=== PATIENT | male | born 1945 | race Caucasian/White ===

== ENCOUNTER 2019-06-11 18:40 | Emergency (ER) | payer OTHER ==
--- NOTE | 2019-06-11 20:11 | PDOC ---
History of Present Illness - General History Source: Patient, Family Exam Limitations: Clinical Condition (Alzheimer's disease), Language Barrier ( primarily Nepali speaker, some Mauritian) - History of Present Illness Initial Comments: 74 yo M PMH Alzheimer's dementia, BPH, [place] 6 prostate CA, p/w lower abdominal pain and inability to urinate. Patient had a colonoscopy this morning , and came out of anesthesia around 1530. He had urge to urinate but was not able to. Per his family, they had to "stop every 15 minutes so he could try to pee, but he couldn't. He tried to jump out of the car, he had to pee so bad." Denies CP, SOB, wheezing, cough, constipation, diarrhea, fevers/chills. Endorses lower abdominal pain and inability to urinate. 06/11/19 19:45 <Doroteo Simon - Last Filed: 06/11/19 21:33> <Maria Ines Katz - Last Filed: 06/11/19 22:02> - General Chief Complaint: Urinary Problem Stated Complaint: SERVE PAIN Time Seen by Provider: 06/11/19 19:27 Past History - Past Medical History COPD: No Dementia: Yes - Suicide/Smoking/Psychosocial Hx Smoking History: Never smoked Hx Alcohol Use: No Drug/Substance Use Hx: No <Doroteo Simon - Last Filed: 06/11/19 21:33> <Maria Ines Katz - Last Filed: 06/11/19 22:02> - Past Medical History Allergies/Adverse Reactions: Allergies Allergy/AdvReac Type Severity Reaction Status Date / Time No Known Allergies Allergy Verified 06/11/19 18:56 *Physical Exam - Vital Signs Last Vital Signs Temp Pulse Resp BP Pulse Ox 98.1 F 77 16 165/73 97 06/11/19 18:53 06/11/19 18:53 06/11/19 18:53 06/11/19 18:53 06/11/19 18:53 <Doroteo Simon - Last Filed: 06/11/19 21:33> - Vital Signs Last Vital Signs Temp Pulse Resp BP Pulse Ox 97.7 F 77 16 165/73 97 06/11/19 21:24 06/11/19 18:53 06/11/19 18:53 06/11/19 18:53 06/11/19 18:53 <Maria Ines Katz - Last Filed: 06/11/19 22:02> ED Treatment Course - LABORATORY CBC & Chemistry Diagram: 06/11/19 20:46 06/11/19 20:46 <Doroteo Simon - Last Filed: 06/11/19 21:33> - LABORATORY CBC & Chemistry Diagram: 06/11/19 20:46 06/11/19 20:46 - ADDITIONAL ORDERS Additional order review: Laboratory Results 06/11/19 06/11/19 20:53 20:46 Sodium 139 Potassium 3.6 Chloride 107 Carbon Dioxide 26 Anion Gap 6 L BUN 13.9 Creatinine 0.8 Est GFR (CKD-EPI)AfAm 103.44 Est GFR (CKD-EPI)NonAf 89.25 Random Glucose 104 Calcium 8.8 Total Bilirubin 0.7 AST 14 L ALT 23 Alkaline Phosphatase 79 Total Protein 6.9 Albumin 3.9 Urine Color Yellow Urine Appearance Clear Urine pH 6.0 Ur Specific Lamar 1.004 L Urine Protein Negative Urine Glucose (UA) Negative Urine Ketones Negative Urine Blood Negative Urine Nitrite Negative Urine Bilirubin Negative Urine Urobilinogen 0.2 Ur Leukocyte Esterase Negative 06/11/19 20:46 RBC 4.65 MCV 94.0 MCHC 34.1 RDW 13.5 MPV 9.4 Neutrophils % 84.0 H Lymphocytes % 8.1 Monocytes % 7.2 Eosinophils % 0.3 Basophils % 0.4 <Maria Ines Katz - Last Filed: 06/11/19 22:02> Medical Decision Making - Medical Decision Making Will place Palencia to help relieve pressure. Send CBC CMP to check kidney function. 06/11/19 19:45 Labs reviewed, UA unremarkable, CBC unremarkable. 06/11/19 21:26 <Doroteo Simon - Last Filed: 06/11/19 21:33> *DC/Admit/Observation/Transfer - Discharge Dispostion Decision to Admit order: No <Doroteo Simon - Last Filed: 06/11/19 21:33> <Maria Ines Katz - Last Filed: 06/11/19 22:02> Diagnosis at time of Disposition: Urinary retention - Discharge Dispostion Disposition: HOME Condition at time of disposition: Improved - Patient Instructions Printed Discharge Instructions: DI for Urinary Retention in Men Additional Instructions: You came into the ED with urinary retention. A Palencia was placed and was able to help you drain urine. Please follow up with your primary care doctor. Return to the ED if you develop abdominal pain, fevers, or chills, or if the catheter stops draining urine. . Call your urologist on Friday for follow up to see if the catheter can be removed--come to the ED if he is unable to see you.
[2019-06-11 20:57] LABS: BASO % 0.4 % (0-2.0); EOS % 0.3 % (0-4.5); HEMATOCRIT 43.7 % (35.4-49); HEMOGLOBIN 14.9 GM/dL (11.7-16.9); LYMPH % 8.1 % (8-40); MCHC 34.1 g/dl (32.0-35.9); MEAN PLT VOLUME 9.4 fl (7.5-11.1); MONO % 7.2 % (3.8-10.2); PLATELET COUNT 169 K/MM3 (134-434); RBC 4.65 M/mm3 (4.00-5.60); RDW 13.5 % (11.9-15.9); WHITE BLOOD COUNT 8.8 K/mm3 (4.0-10.0)
[2019-06-11 21:03] LABS: URINE APPEARANCE CLEAR; URINE BILIRUBIN NEGATIVE (NEGATIVE); URINE COLOR YELLOW; URINE GLUCOSE (UA) NEGATIVE (NEGATIVE); URINE KETONE NEGATIVE (NEGATIVE); URINE LEUK ESTERASE NEGATIVE (NEGATIVE); URINE NITRITE NEGATIVE (NEGATIVE); URINE PROTEIN NEGATIVE (NEGATIVE); URINE UROBILINOGEN 0.2 mg/dL (0.2-1.0)
[2019-06-11 21:31] LABS: ALBUMIN 3.9 g/dl (3.4-5.0); BILIRUBIN,TOTAL 0.7 mg/dL (0.2-1); BLOOD UREA NITROGEN 13.9 mg/dL (7-18); CALCIUM 8.8 mg/dL (8.5-10.1); CREATININE 0.8 mg/dL (0.55-1.3); POTASSIUM 3.6 mmol/L (3.5-5.1); TOT PROT 6.9 g/dl (6.4-8.2)
--- NOTE | 2019-06-11 22:01 | PDOC ---
Documentation entered by Jorge Ambrosio SCRIBE, acting as scribe for Maria Ines Katz MD. Maria Ines Katz MD: This documentation has been prepared by the Hebert marie Xhesika, SCRIBE, under my direction and personally reviewed by me in its entirety. I confirm that the documentation accurately reflects all work, treatment, procedures, and medical decision making performed by me. Attending Attestation - Resident Resident Name: Doroteo Simon - HPI HPI: 06/11/19 20:21 The patient is a 74 year old male with a significant medical history of PMH Alzheimer's dementia, BPH, [place] 6 prostate CA who present to the ED with urinary retention and lower abdominal pain. As per family, the patient had a colonoscopy this morning, came home and endorsed acute urinary retention. The patient denies chest pain, shortness of breath, headache and dizziness. Denies fever, chills, nausea, vomit, diarrhea and constipation. Denies dysuria and hematuria. Allergies: NKA - Physicial Exam PE: 06/11/19 20:21 GENERAL: Awake, alert, and fully oriented, in no acute distress HEAD: No signs of trauma EYES: PERRLA, EOMI, sclera anicteric, conjunctiva clear ENT: Auricles normal inspection, hearing grossly normal, nares patent, oropharynx clear without exudates. Moist mucosa NECK: Normal ROM, supple, no lymphadenopathy, JVD, or masses LUNGS: Breath sounds equal, clear to auscultation bilaterally. No wheezes, and no crackles HEART: Regular rate and rhythm, normal S1 and S2, no murmurs, rubs or gallops ABDOMEN: Soft, nontender, normoactive bowel sounds. No guarding, no rebound. No masses EXTREMITIES: Normal range of motion, no edema. No clubbing or cyanosis. No cords, erythema, or tenderness NEUROLOGICAL: Cranial nerves II through XII grossly intact. Normal speech, normal gait SKIN: Warm, Dry, normal turgor, no rashes or lesions noted. - Medical Decision Making 06/11/19 22:01 Pt presents to the ED complaining of urinary retention. REsolved after aleman placement. Cr remains normal. Will discharge home with leg bag and urology follow up.
== END 2019-06-11 22:00 | disposition home or self-care (01) ==
LOC: JER 18:40
PROC: 0T9B70Z Drainage of Bladder with Drainage Device, Via Natural or Artificial Opening (ICD-10-PCS; principal; 2019-06-11)
DX: N40.1 Benign prostatic hyperplasia with lower urinary tract symptoms (principal); R33.8 Other retention of urine; Z98.890 Other specified postprocedural states; G30.8 Other Alzheimer's disease; F02.80 Dementia in other diseases classified elsewhere, unspecified severity, without behavioral disturbance, psychotic disturbance, mood disturbance, and anxiety; Z85.46 Personal history of malignant neoplasm of prostate; C61 Malignant neoplasm of prostate
CPT/HCPCS: 36415; 51702; 80053; 81003; 85025; 87086; 99282-25

== ENCOUNTER 2021-05-14 19:39 | Inpatient (IN) | payer OTHER ==
[2021-05-14 20:03] VITALS: BMI 26.9
[2021-05-14] MEDS ORDERED: LACTATED RINGERS SOLUTION 1000 ML INFUS.BAG IV ONE (21:18)
[2021-05-14 21:51] LABS: BASO % 0.2 % (0-2.0); EOS % 0.3 % (0-4.5); HEMATOCRIT 44.7 % (35.4-49); HEMOGLOBIN 15.2 GM/dL (11.7-16.9); LYMPH % 6.7 % (8-40); MCH 32.1 pg (25.7-33.7); MCHC 33.9 g/dl (32.0-35.9); MEAN CELL VOLUME 94.7 fl (80-96); MEAN PLT VOLUME 8.9 fl (7.5-11.1); MONO % 7.6 % (3.8-10.2); NEUT % 85.2 % (42.8-82.8); PLATELET COUNT 201 10^3/uL (134-434); RBC 4.72 M/mm3 (4.00-5.60); RDW 13.4 % (11.9-15.9); WHITE BLOOD COUNT 12.3 K/mm3 (4.0-10.0)
[2021-05-14 22:12] LABS: BLOOD UREA NITROGEN 16.5 mg/dL (7-18); CALCIUM 9.2 mg/dL (8.5-10.1); MAGNESIUM 2.4 mg/dL (1.8-2.4)
[2021-05-14 22:16] LABS: CREATININE 0.8 mg/dL (0.55-1.3)
[2021-05-14 22:17] LABS: BILIRUBIN,TOTAL 0.6 mg/dL (0.2-1); TOT PROT 6.9 g/dl (6.4-8.2)
[2021-05-14 23:06] LABS: URINE APPEARANCE CLEAR; URINE BILIRUBIN NEGATIVE (NEGATIVE); URINE COLOR YELLOW; URINE GLUCOSE (UA) NEGATIVE (NEGATIVE); URINE KETONE NEGATIVE (NEGATIVE); URINE LEUK ESTERASE NEGATIVE (NEGATIVE); URINE NITRITE NEGATIVE (NEGATIVE); URINE PROTEIN NEGATIVE (NEGATIVE)
[2021-05-15] MEDS ORDERED: CEFTRIAXONE 1,000 MG in DEXTROSE 5%-WATER - 50 ML IVPB ONE (00:23)
[2021-05-15] MEDS ORDERED: CEFTRIAXONE 1 GM/50 ML BAG ONE (00:37)
[2021-05-15] MEDS ORDERED: LORazepam 2 MG/ML SDV VIAL IVPUSH ONE (03:07)
[2021-05-15] MEDS ORDERED: LORazepam 2 MG/ML SDV VIAL ONE (03:11)
[2021-05-15] MEDS ORDERED: OLANZapine 10 MG TABLET PO ONE (03:33)
[2021-05-15] MEDS ORDERED: OLANZapine 10 MG TABLET ONE (03:38)
[2021-05-15] MEDS ORDERED: HALOPERIDOL LACTATE 5 MG/ML ONE (03:42)
[2021-05-15] MEDS ORDERED: HALOPERIDOL LACTATE 5 MG/ML IM ONE (03:59)
[2021-05-15 06:16] LABS: BASO % 0.2 % (0-2.0); HEMATOCRIT 45.4 % (35.4-49); HEMOGLOBIN 15.1 GM/dL (11.7-16.9); LYMPH % 9.6 % (8-40); MCH 31.7 pg (25.7-33.7); MCHC 33.3 g/dl (32.0-35.9); MEAN CELL VOLUME 95.2 fl (80-96); MEAN PLT VOLUME 8.8 fl (7.5-11.1); MONO % 8.2 % (3.8-10.2); PLATELET COUNT 181 10^3/uL (134-434); RBC 4.78 M/mm3 (4.00-5.60); RDW 13.3 % (11.9-15.9); WHITE BLOOD COUNT 20.5 K/mm3 (4.0-10.0)
[2021-05-15 06:37] LABS: BLOOD UREA NITROGEN 11.4 mg/dL (7-18); CALCIUM 9.1 mg/dL (8.5-10.1)
[2021-05-15 06:38] LABS: ALBUMIN 3.7 g/dl (3.4-5.0); MAGNESIUM 2.1 mg/dL (1.8-2.4)
[2021-05-15 06:41] LABS: CREATININE 0.7 mg/dL (0.55-1.3); PHOSPHOROUS 3.1 mg/dL (2.5-4.9)
[2021-05-15 06:42] LABS: BILIRUBIN,TOTAL 1.3 mg/dL (0.2-1); TOT PROT 6.5 g/dl (6.4-8.2)
[2021-05-15 06:46] LABS: LACTIC ACID 2.5 mmol/L (0.4-2.0)
[2021-05-15] MEDS: TAMSULOSIN HCL 0.4 MG CAP PO SCH (08:40)
[2021-05-15 08:53] LABS: ANISOCYTOSIS 0; HELMET CELLS 0; HOWELL-JOLLY BODIES 0; MACROCYTOSIS 0; OVALOCYTE 0; PLATELET ESTIMATE NORMAL; ROULEAU 0; SICKELED CELLS 0; TARGET CELLS 0; TEAR DROP CELLS 0; TOXIC GRANULATION 0
[2021-05-15] MEDS: amLODIPine BESYLATE 5 MG TABLET (FP) PO SCH (11:41)
[2021-05-15] MEDS: ENOXAPARIN NA (PORCINE) 40 MG/0.4 ML DISP.SYRIN SQ SCH (11:41)
[2021-05-15] MEDS: LACTATED RINGERS SOLUTION 1,000 ML/1,000 ML INFUS.BAG IV SCH (13:13)
[2021-05-15] MEDS: POLYETHYLENE GLYCOL 3350 119 GM BTL PO SCH ×3 (13:13→21:50)
[2021-05-15] MEDS: ATORVASTATIN CA 10 MG TABLET (FP) PO SCH (21:42)
[2021-05-15] MEDS: DONEPEZIL HCL 5 MG TABLET (FP) PO SCH (21:42)
[2021-05-15] MEDS ORDERED: QUEtiapine FUMARATE 25 MG TABLET PO ONE (22:51)
[2021-05-16] MEDS: POLYETHYLENE GLYCOL 3350 119 GM BTL PO SCH ×3 (05:03→21:09)
[2021-05-16 08:42] LABS: BASO % 0.2 % (0-2.0); EOS % 0.2 % (0-4.5); HEMATOCRIT 42.1 % (35.4-49); HEMOGLOBIN 14.4 GM/dL (11.7-16.9); LYMPH % 5.2 % (8-40); MCH 32.5 pg (25.7-33.7); MCHC 34.3 g/dl (32.0-35.9); MEAN CELL VOLUME 94.9 fl (80-96); MEAN PLT VOLUME 9.2 fl (7.5-11.1); MONO % 7.5 % (3.8-10.2); NEUT % 86.9 % (42.8-82.8); PLATELET COUNT 165 10^3/uL (134-434); RBC 4.44 M/mm3 (4.00-5.60); RDW 13.7 % (11.9-15.9); WHITE BLOOD COUNT 15.1 K/mm3 (4.0-10.0)
[2021-05-16 09:05] LABS: CALCIUM 8.7 mg/dL (8.5-10.1)
[2021-05-16 09:06] LABS: ALBUMIN 3.3 g/dl (3.4-5.0); BLOOD UREA NITROGEN 9.3 mg/dL (7-18)
[2021-05-16 09:09] LABS: CREATININE 0.6 mg/dL (0.55-1.3)
[2021-05-16 09:11] LABS: BILIRUBIN,TOTAL 1.7 mg/dL (0.2-1)
[2021-05-16] MEDS ORDERED: cefTRIAXone SODIUM 1 GM VIAL ONE (09:23)
[2021-05-16] MEDS ORDERED: DEXTROSE 5%-WATER - 50 ML IVPB ONE (09:23)
[2021-05-16] MEDS: amLODIPine BESYLATE 5 MG TABLET (FP) PO SCH (09:29)
[2021-05-16] MEDS: CEFTRIAXONE 1 GM in DEXTROSE 5%-WATER - 50 ML IVPB SCH (09:29)
[2021-05-16] MEDS: TAMSULOSIN HCL 0.4 MG CAP PO SCH (09:29)
[2021-05-16] MEDS: ENOXAPARIN NA (PORCINE) 40 MG/0.4 ML DISP.SYRIN SQ SCH (09:29)
[2021-05-16] MEDS: LACTATED RINGERS SOLUTION 1,000 ML/1,000 ML INFUS.BAG IV SCH (13:00)
[2021-05-16] MEDS: ATORVASTATIN CA 10 MG TABLET (FP) PO SCH (21:27)
[2021-05-16] MEDS: DONEPEZIL HCL 5 MG TABLET (FP) PO SCH (21:27)
[2021-05-17] MEDS: POLYETHYLENE GLYCOL 3350 119 GM BTL PO SCH ×3 (05:10→21:31)
[2021-05-17] MEDS: LACTATED RINGERS SOLUTION 1,000 ML/1,000 ML INFUS.BAG IV SCH ×2 (05:46→09:50)
[2021-05-17 07:50] LABS: BASO % 0.3 % (0-2.0); EOS % 0.5 % (0-4.5); HEMATOCRIT 42.5 % (35.4-49); HEMOGLOBIN 14.2 GM/dL (11.7-16.9); LYMPH % 8.3 % (8-40); MCHC 33.4 g/dl (32.0-35.9); MEAN CELL VOLUME 95.8 fl (80-96); MEAN PLT VOLUME 9.5 fl (7.5-11.1); MONO % 8.9 % (3.8-10.2); PLATELET COUNT 171 10^3/uL (134-434); RBC 4.43 M/mm3 (4.00-5.60); RDW 13.6 % (11.9-15.9)
[2021-05-17 08:23] LABS: BLOOD UREA NITROGEN 12.4 mg/dL (7-18); CALCIUM 8.3 mg/dL (8.5-10.1)
[2021-05-17 08:26] LABS: BILIRUBIN,TOTAL 1.4 mg/dL (0.2-1)
[2021-05-17 08:27] LABS: CREATININE 0.6 mg/dL (0.55-1.3); TOT PROT 5.8 g/dl (6.4-8.2)
[2021-05-17] MEDS ORDERED: DEXTROSE 5%-WATER - 50 ML IVPB ONE (09:47)
[2021-05-17] MEDS ORDERED: cefTRIAXone SODIUM 1 GM VIAL ONE (09:47)
[2021-05-17] MEDS: CEFTRIAXONE 1 GM in DEXTROSE 5%-WATER - 50 ML IVPB SCH (09:50)
[2021-05-17] MEDS: amLODIPine BESYLATE 5 MG TABLET (FP) PO SCH (09:50)
[2021-05-17] MEDS: TAMSULOSIN HCL 0.4 MG CAP PO SCH (09:50)
[2021-05-17] MEDS: ENOXAPARIN NA (PORCINE) 40 MG/0.4 ML DISP.SYRIN SQ SCH (09:51)
[2021-05-17] MEDS: ATORVASTATIN CA 10 MG TABLET (FP) PO SCH (21:31)
[2021-05-17] MEDS: DONEPEZIL HCL 5 MG TABLET (FP) PO SCH (21:31)
[2021-05-18] MEDS: POLYETHYLENE GLYCOL 3350 119 GM BTL PO SCH ×3 (05:46→22:08)
[2021-05-18 08:27] LABS: BASO % 0.4 % (0-2.0); EOS % 1.2 % (0-4.5); HEMATOCRIT 42.7 % (35.4-49); HEMOGLOBIN 14.4 GM/dL (11.7-16.9); LYMPH % 9.5 % (8-40); MCHC 33.6 g/dl (32.0-35.9); MEAN CELL VOLUME 95.3 fl (80-96); MONO % 12.3 % (3.8-10.2); NEUT % 76.6 % (42.8-82.8); PLATELET COUNT 197 10^3/uL (134-434); RBC 4.48 M/mm3 (4.00-5.60); RDW 13.7 % (11.9-15.9); WHITE BLOOD COUNT 9.4 K/mm3 (4.0-10.0)
[2021-05-18 08:51] LABS: BLOOD UREA NITROGEN 8.6 mg/dL (7-18); CALCIUM 8.6 mg/dL (8.5-10.1)
[2021-05-18 08:54] LABS: CREATININE 0.7 mg/dL (0.55-1.3)
[2021-05-18 08:56] LABS: TOT PROT 5.8 g/dl (6.4-8.2)
[2021-05-18] MEDS ORDERED: cefTRIAXone SODIUM 1 GM VIAL ONE (09:26)
[2021-05-18] MEDS ORDERED: DEXTROSE 5%-WATER - 50 ML IVPB ONE (09:26)
[2021-05-18] MEDS: CEFTRIAXONE 1 GM in DEXTROSE 5%-WATER - 50 ML IVPB SCH (09:34)
[2021-05-18] MEDS: LACTATED RINGERS SOLUTION 1,000 ML/1,000 ML INFUS.BAG IV SCH (09:34)
[2021-05-18] MEDS: ENOXAPARIN NA (PORCINE) 40 MG/0.4 ML DISP.SYRIN SQ SCH (09:34)
[2021-05-18] MEDS: amLODIPine BESYLATE 5 MG TABLET (FP) PO SCH (09:34)
[2021-05-18] MEDS: TAMSULOSIN HCL 0.4 MG CAP PO SCH (09:34)
[2021-05-18] MEDS: ATORVASTATIN CA 10 MG TABLET (FP) PO SCH (22:04)
[2021-05-18] MEDS: DONEPEZIL HCL 5 MG TABLET (FP) PO SCH (22:06)
[2021-05-19] MEDS: POLYETHYLENE GLYCOL 3350 119 GM BTL PO SCH ×3 (06:48→21:39)
[2021-05-19] MEDS: TAMSULOSIN HCL 0.4 MG CAP PO SCH (08:55)
[2021-05-19] MEDS: ENOXAPARIN NA (PORCINE) 40 MG/0.4 ML DISP.SYRIN SQ SCH (09:27)
[2021-05-19 09:54] LABS: BASO % 0.2 % (0-2.0); EOS % 1.4 % (0-4.5); HEMATOCRIT 45.5 % (35.4-49); HEMOGLOBIN 15.3 GM/dL (11.7-16.9); LYMPH % 10.8 % (8-40); MCHC 33.7 g/dl (32.0-35.9); MONO % 11.9 % (3.8-10.2); NEUT % 75.7 % (42.8-82.8); PLATELET COUNT 240 10^3/uL (134-434); RBC 4.79 M/mm3 (4.00-5.60); RDW 13.7 % (11.9-15.9); WHITE BLOOD COUNT 8.9 K/mm3 (4.0-10.0)
[2021-05-19 10:08] LABS: BLOOD UREA NITROGEN 9.3 mg/dL (7-18); CALCIUM 9.2 mg/dL (8.5-10.1)
[2021-05-19 10:11] LABS: CREATININE 0.8 mg/dL (0.55-1.3)
[2021-05-19] MEDS: amLODIPine BESYLATE 5 MG TABLET (FP) PO SCH (10:14)
[2021-05-19] MEDS ORDERED: DEXTROSE 5%-WATER - 50 ML IVPB ONE (10:21)
[2021-05-19] MEDS ORDERED: cefTRIAXone SODIUM 1 GM VIAL ONE (10:21)
[2021-05-19] MEDS: CEFTRIAXONE 1 GM in DEXTROSE 5%-WATER - 50 ML IVPB SCH (10:28)
[2021-05-19] MEDS: ATORVASTATIN CA 10 MG TABLET (FP) PO SCH (21:38)
[2021-05-19] MEDS: DONEPEZIL HCL 5 MG TABLET (FP) PO SCH (21:38)
[2021-05-20] MEDS: POLYETHYLENE GLYCOL 3350 119 GM BTL PO SCH ×2 (05:46→13:24)
[2021-05-20] MEDS: TAMSULOSIN HCL 0.4 MG CAP PO SCH (08:11)
[2021-05-20 09:27] LABS: HEMOGLOBIN 15.1 GM/dL (11.7-16.9); MCH 32.3 pg (25.7-33.7); MCHC 33.6 g/dl (32.0-35.9); MEAN CELL VOLUME 96.2 fl (80-96); MEAN PLT VOLUME 9.5 fl (7.5-11.1); PLATELET COUNT 250 10^3/uL (134-434); RBC 4.68 M/mm3 (4.00-5.60); RDW 13.6 % (11.9-15.9); WHITE BLOOD COUNT 9.7 K/mm3 (4.0-10.0)
[2021-05-20] MEDS ORDERED: cefTRIAXone SODIUM 1 GM VIAL ONE (09:39)
[2021-05-20] MEDS ORDERED: DEXTROSE 5%-WATER - 50 ML IVPB ONE (09:40)
[2021-05-20] MEDS: ENOXAPARIN NA (PORCINE) 40 MG/0.4 ML DISP.SYRIN SQ SCH (09:45)
[2021-05-20] MEDS: CEFTRIAXONE 1 GM in DEXTROSE 5%-WATER - 50 ML IVPB SCH (09:45)
[2021-05-20] MEDS: amLODIPine BESYLATE 5 MG TABLET (FP) PO SCH (09:46)
[2021-05-20 09:49] LABS: CALCIUM 8.8 mg/dL (8.5-10.1)
[2021-05-20 09:50] LABS: BLOOD UREA NITROGEN 10.5 mg/dL (7-18)
[2021-05-20 09:53] LABS: CREATININE 0.7 mg/dL (0.55-1.3)
[2021-05-20 14:14] VITALS: BP 116/69; PULSE 95; TEMP 98.7
== END 2021-05-20 16:00 | disposition home or self-care (01) | DRG 391 ==
LOC: JER 19:39 → JERBED 05-15 01:13 → J6S 05-15 10:38
PROVIDERS: ADMIT Hospitalist; ATTEND Internal Medicine
DX: K57.32 Diverticulitis of large intestine without perforation or abscess without bleeding (principal); G93.41 Metabolic encephalopathy; N40.0 Benign prostatic hyperplasia without lower urinary tract symptoms; I10 Essential (primary) hypertension; E78.5 Hyperlipidemia, unspecified; M06.9 Rheumatoid arthritis, unspecified; G30.9 Alzheimer's disease, unspecified; F02.80 Dementia in other diseases classified elsewhere, unspecified severity, without behavioral disturbance, psychotic disturbance, mood disturbance, and anxiety; D49.0 Neoplasm of unspecified behavior of digestive system; K64.9 Unspecified hemorrhoids; K59.09 Other constipation; D72.829 Elevated white blood cell count, unspecified; Z87.19 Personal history of other diseases of the digestive system; R93.5 Abnormal findings on diagnostic imaging of other abdominal regions, including retroperitoneum; Z85.46 Personal history of malignant neoplasm of prostate
CPT/HCPCS: 36415; 71045-TC-FY; 74177-TC; 80048; 80053; 81003; 82378; 83605; 83735; 84100; 84484; 85025; 85027; 86140; 87086; 93005; 93010; 97116-GP; 97161-GP; 99285-25; C9803; U0003; U0005